=== PATIENT | female | born 1975 | race African-American/Black ===

== ENCOUNTER 2020-07-14 11:49 | Emergency (ER) | payer MEDICAID, OTHER ==
[~2020-07-14] VITALS: Ht 160 cm; Wt 72.6 kg
[2020-07-14 14:09] VITALS: BP 107/66
[2020-07-14] MEDS ORDERED: IBUPROFEN 800 MG TAB PO ONE (14:15)
[2020-07-14] MEDS ORDERED: METHOCARBAMOL 500 MG TAB PO ONE (14:15)
== END 2020-07-14 16:04 | disposition home or self-care (01) ==
LOC: ER 11:49
DX: S16.1XXA Strain of muscle, fascia and tendon at neck level, initial encounter (principal); M54.6 Pain in thoracic spine; R51.9 Headache, unspecified; F17.210 Nicotine dependence, cigarettes, uncomplicated; Z90.710 Acquired absence of both cervix and uterus; V49.9XXA Car occupant (driver) (passenger) injured in unspecified traffic accident, initial encounter; Y93.89 Activity, other specified; Y92.89 Other specified places as the place of occurrence of the external cause; Y99.8 Other external cause status
CPT/HCPCS: 72040; 72070